=== PATIENT | female | born 1955 | race Caucasian/White ===

== ENCOUNTER 2025-02-09 07:41 | Day surgery (SDC) | payer OTHER ==
[~2025-02-09] VITALS: Ht 162.6 cm; Wt 81.0 kg
[2025-02-09] VITALS (16 sets, daily range): BP systolic 92–142; BP diastolic 64–119
[~2025-02-09 07:41] MED LIST: Lactated Ringer's 1,000 ML IV SCH
--- NOTE | 2025-02-09 08:27 | NUR ---
Ambulatory in Day Surgery. History, Chart, Medications and Allergies reviewed before start of procedure. Patient confirms NPO status and agrees with scheduled surgery. Patient states colon prep results clear/yellow. Patient States Post-Procedure ride home has been arranged.
[2025-02-09] MEDS ORDERED: propofoL 20 ML IV ONE (09:00)
--- NOTE | 2025-02-09 09:39 | NUR ---
02/09/25 Iveth Eckert CONFIRMED AND REVIEWED H&P, MEDCICATIONS, ALLERGIES, MEDICAL HISTORY, RESPIRATORY HISTORY, VITAL SIGNS, 3-LEAD EKG, CONSENTS, AND PHYSICIAN ORDERS. PATIENT CONFIRMS NPO STATUS AND AGREES WITH SCHEDULED PROCEDURE. MONITOR INTACT WITH CONTINUOUS PULSE OXIMETRY, CAPNOGRAPHY, 3-LEAD EKG, INTERMITTENT BP. SUPPLEMENTAL O2 TO BE TITRATED THROUGHOUT PROCEDURE TO MAINTAIN O2 SATURATION ABOVE 90%. PATIENT DETERMINED TO BE ASA APPROPRIATE FOR PROPOFOL SEDATION PRIOR TO START OF PROCEDURE BY DR. FOX
--- NOTE | 2025-02-09 10:11 | NUR ---
TO STEP POST PROCEDURE. NO SPECIMENS, FOLLOW UP 10 YEARS. VERBALIZED UNDERSTANDING OF DC INSTRUCTIONS. YFN PO WELL. DENIES PAIN, NAUSEA, SOB. DC'D IV INTACT. DC'D VIA WC TO PRIVATE CAR WITH YARD PIPE GRADER WITH BELONGINGS.
== END 2025-02-09 10:10 | disposition home or self-care (01) ==
LOC: ORSCMMR 07:41 → ORD 08:30 → ORSCMMR 08:30
PROVIDERS: Internal Medicine Gastroenterology
PROC: 0DJD8ZZ Inspection of Lower Intestinal Tract, Via Natural or Artificial Opening Endoscopic (ICD-10-PCS; principal; 2025-02-09 08:30)
DX: Z12.11 Encounter for screening for malignant neoplasm of colon (principal); Z90.49 Acquired absence of other specified parts of digestive tract; I10 Essential (primary) hypertension; K57.30 Diverticulosis of large intestine without perforation or abscess without bleeding; M62.89 Other specified disorders of muscle
CPT/HCPCS: J2704; J7120